=== PATIENT | female | born 1955 | race Caucasian/White ===

== ENCOUNTER 2017-08-03 16:02 | Outpatient (CLI) | payer OTHER | END 2017-08-03 16:03 | disposition home or self-care (01) | LOC: BICMAMMO 16:02 | PROVIDERS: ATTEND Family Medicine | DX: Z12.31 Encounter for screening mammogram for malignant neoplasm of breast (principal); R92.1 Mammographic calcification found on diagnostic imaging of breast; Z80.3 Family history of malignant neoplasm of breast | CPT/HCPCS: 77063; 77067 ==

== ENCOUNTER 2018-06-28 10:00 | Inpatient (IN) | payer OTHER ==
[2018-07-12 13:27] VITALS: BMI 32.9
[2018-07-17] MEDS ORDERED: Midazolam HCl 2 mg/2 ml Vial ONE (07:22)
[2018-07-17] MEDS ORDERED: Fentanyl 100 MCG/2 ML VIAL ONE ×2 (07:22→12:27)
[2018-07-17] MEDS ORDERED: Dexamethasone 4 mg/ml Vial ONE (07:26)
[2018-07-17] MEDS ORDERED: cefOXitin Sodium/Dextrose,Iso 2 GM in Premix Bag 1 BAG IVPB SCH (07:45)
[2018-07-17] MEDS ORDERED: Lidocaine 1% (PF) 30 ML VIAL ONE (08:18)
[2018-07-17] MEDS ORDERED: Ketorolac Tromethamine 30 MG/ML VIAL ONE (08:26)
[2018-07-17] MEDS ORDERED: Fentanyl 250 MCG/5 ML VIAL ONE (08:45)
[2018-07-17] MEDS ORDERED: Lidocaine 2% w/Epinephrine 1:200K 20 ML VIAL ONE ×2 (08:47→10:24)
[2018-07-17] MEDS ORDERED: ceFOXitin 1 GM VIAL ONE (10:24)
[2018-07-17] MEDS ORDERED: Meperidine HCl/PF 25 MG/ML VIAL ONE (11:56)
[2018-07-17] MEDS ORDERED: Fentanyl 100 MCG/2 ML VIAL SLOW IVP PRN (12:05)
[2018-07-17] MEDS ORDERED: Meperidine HCl/PF 25 MG/ML VIAL SLOW IVP PRN (12:05)
[2018-07-17] MEDS ORDERED: Ondansetron PF 4 MG/2 ML Vial IVP PRN ×2 (12:06→13:28)
[2018-07-17] MEDS ORDERED: Promethazine HCl 25 MG/ML VIAL IM PRN (13:28)
[2018-07-17] MEDS ORDERED: hydrALAZINE 20 MG/ML VIAL SLOW IVP PRN (13:28)
[2018-07-17] MEDS ORDERED: Morphine 4 MG/ML VIAL SLOW IVP PRN (13:28)
[2018-07-17] MEDS ORDERED: Bupivacaine HCl 0.5%/Epinephrine 1:200,000/PF 30 ml Vial ONE (13:40)
[2018-07-17] MEDS ORDERED: Ondansetron PF 4 MG/2 ML Vial ONE (13:54)
[2018-07-17] MEDS ORDERED: Glycopyrrolate 0.2 MG/ML 5 ML SYRINGE ONE (13:54)
[2018-07-17] MEDS ORDERED: Rocuronium Bromide 10 MG/ML (10ML VIAL) ONE (13:54)
[2018-07-17] MEDS ORDERED: Lidocaine 1% PF 5 ML VIAL ONE (13:54)
[2018-07-17] MEDS ORDERED: Dexamethasone 20 MG/5 ML VIAL ONE (13:54)
[2018-07-17] MEDS ORDERED: PROPOFOL 200 MG/20 ML VIAL ONE (13:54)
[2018-07-17] MEDS: D5 1/2 NS w/20 mEq KCL 1,000 ML IV SCH ×2 (14:00→19:48)
[2018-07-17] MEDS: Acetaminophen 1,000 MG in Premix Bag 1 BAG IVPB SCH ×2 (15:17→19:45)
[2018-07-17] MEDS: Ketorolac Tromethamine 30 MG/ML VIAL IVP SCH ×2 (15:18→19:46)
--- NOTE | 2018-07-17 15:33 | OP ---
DATE OF PROCEDURE: 07/17/2018 PREOPERATIVE DIAGNOSIS: Transverse colon polyp. POSTOPERATIVE DIAGNOSES: Transverse colon polyp and distal transverse colon with splenic flexure. PROCEDURES PERFORMED: Laparoscopic hand-assisted segmental colon resection of the splenic flexure of the colon with primary anastomosis. ANESTHESIA: General endotracheal. INDICATIONS: The patient is a 62-year-old white female. 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 This was tattooed. She is taken to the operating room this time for laparoscopic colectomy. DESCRIPTION OF OPERATION: Informed consent was obtained, the patient was taken to the operating room, where general endotracheal anesthesia was obtained with the patient in supine position. She was placed into the split leg position and Holder catheter was placed. Abdomen was prepped with ChloraPrep and draped in sterile fashion. Local anesthetic was infiltrated and 5 mm infraumbilical incision was created through, which a Veress needle was passed in the peritoneal cavity. Pneumoperitoneum was established using carbon dioxide up to pressure 50 mmHg. A 5 mm trocar port was passed through this incision and a laparoscopic camera was passed through this port. Under direct vision, an additional 5 mm left lower quadrant port was placed. There were omental adhesions to the anterior abdominal wall. There was a mesh patch in the upper abdomen and there were fairly dense adhesions to this mesh patch. Adhesions were carefully taken down with the LigaSure device. There was no bowel involved in the adhesions. All adhesions to the anterior abdominal wall were carefully lysed and hemostasis was meticulously maintained. I was then able to reflect the omentum superiorly over the colon. On inspection of the transverse colon, I was able to identify the blue dye tattoo on the anterior aspect of the distal transverse colon adjacent to the splenic flexure. An extraction site was selected in the left upper quadrant. An 8 cm oblique incision was created and muscle-splitting was used to gain access in the abdominal cavity and Christopher wound retractor was placed. GelPort was placed and hand assisted dissection was continued. The left colon was mobilized along the white line of Toldt up to the level of the splenic flexure. The omentum was dissected off the distal transverse colon again using the LigaSure. I was able to identify the Jae limb of the small bowel that was retrocolic. It appeared to have been somewhat twisted; however, attempts to straighten this either the proximal or distal end resulted in further twisting, so I decided to leave it alone. After fully mobilizing the distal transverse colon and the proximal left colon, this was externalized through the wound retractor. I selected the segment of the proximal transverse colon in the mid left colon for division. I took down all the mesentery between these 2 sites using the LigaSure device. I dissected directly down onto the Jae limb of the small bowel as proceeded through the mesentery, but injury to this was carefully avoided. 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 Double stapled anastomosis created with the ZACHARIAH 75 stapler at the sites that had been previously selected. The bowel was passed off the field. The colon was opened and at the site of the tattoo, I was able to identify a sessile polyp that was firm and potentially concerning. Segregated instruments have been utilized during the time that the bowel was opened and when it was inspected. All instruments were passed off the field and gloves were changed to continue the operation. The anastomosis was buttressed with several interrupted sutures of 3-0 silk. The anastomosis was then dropped back down to the abdominal cavity. Laparoscopy was continued. The abdominal cavity was inspected and it was found to be hemostatic. There have been essentially no blood loss at any time during the surgery. The area was irrigated and all irrigant was aspirated. All ports and instruments were removed under direct vision. Pneumoperitoneum was carefully evacuated. All laparoscopic equipment was removed from the field. The abdomen was cleansed with saline. Gowns and gloves were changed. New towels were placed around the 3 incisions. The fascia of the larger incision was closed in 2 layers using running suture of #1 PDS. Wound was copiously irrigated with 1.5 L of saline. All irrigant was aspirated. The remainder of the wound was closed in layers with 3-0 and 4-0 Monocryl. Dermabond was placed externally. The two 5 mm port sites were closed with 4-0 Monocryl as well. There were no complications. The patient tolerated the procedure well and was taken to recovery room in stable condition. Job ID: [id number]
[2018-07-17] MEDS: Famotidine 20 MG TAB PO SCH (19:46)
[2018-07-17] MEDS: Enoxaparin Sodium 40 MG/0.4 ML SYRINGE SC SCH (19:46)
[2018-07-17] MEDS: Metoprolol Tartrate 25 MG TAB PO SCH (19:46)
[2018-07-17] MEDS: Famotidine/PF 20 mg/2ml Vial SLOW IVP SCH (19:47)
[2018-07-18] MEDS: Morphine 4 MG/ML VIAL SLOW IVP PRN ×2 (01:09→20:56)
[2018-07-18] MEDS: Ketorolac Tromethamine 30 MG/ML VIAL IVP SCH ×4 (03:17→20:56)
[2018-07-18] MEDS: Acetaminophen 1,000 MG in Premix Bag 1 BAG IVPB SCH ×2 (03:18→09:27)
[2018-07-18 06:34] LABS: #Lymphocytes 1.1 thou/uL (1.20-3.40); #Monocytes 0.5 thou/uL (0.11-0.59); %Basophils 0.1 % (0.0-1.0); %Eosinophils 0.1 % (0.0-10.0); %Lymphocytes 13.8 % (21.0-51.0); %Monocytes 7.1 % (0.0-10.0); %Neutrophils 78.9 % (42.0-75.0); Hemoglobin 11.4 g/dL (12.0-16.0); Mean Corpuscular HGB CONC 33.3 g/dL (32.0-36.0); Mean Corpuscular Hemoglobin 33.5 pg (27.0-31.0); Platelet Count 187 thou/uL (130-400); RBC Distribution Width 11.5 % (11.5-14.5); Red Blood Cell (RBC) Count 3.41 mill/uL (4.20-5.40); White Blood Cell (WBC) Count 7.6 thou/uL (4.8-10.8)
[2018-07-18 06:50] LABS: Anion Gap 11 mmol/L (10-20); BUN (Urea Nitrogen) 11 mg/dL (9.8-20.1); Calc. Creatinine Clearance 109 mL/min (70-130); Calcium 8.7 mg/dL (7.8-10.44); Carbon Dioxide 23 mmol/L (23-31); Chloride 101 mmol/L (98-107); Estimated GFR-MDRD 75; Glucose 145 mg/dL (80-115); Potassium 4.6 mmol/L (3.5-5.1); Sodium 130 mmol/L (136-145)
[2018-07-18] MEDS: Famotidine/PF 20 mg/2ml Vial SLOW IVP SCH (09:12)
[2018-07-18] MEDS: Famotidine 20 MG TAB PO SCH ×2 (09:26→20:57)
[2018-07-18] MEDS: D5 1/2 NS w/20 mEq KCL 1,000 ML IV SCH ×3 (09:26→17:52)
[2018-07-18] MEDS: Metoprolol Tartrate 25 MG TAB PO SCH ×2 (09:26→20:57)
[2018-07-18] MEDS ORDERED: HYDROcodone/Acetaminophen 7.5/325 mg Tablet PO PRN ×2 (09:33)
[2018-07-18] MEDS: Enoxaparin Sodium 40 MG/0.4 ML SYRINGE SC SCH (20:55)
[2018-07-19] MEDS: D5 1/2 NS w/20 mEq KCL 1,000 ML IV SCH (00:26)
[2018-07-19] MEDS: Ketorolac Tromethamine 30 MG/ML VIAL IVP SCH ×3 (03:21→14:08)
[2018-07-19] MEDS: Metoprolol Tartrate 25 MG TAB PO SCH (09:25)
[2018-07-19] MEDS: Famotidine 20 MG TAB PO SCH (09:25)
[2018-07-19 11:50] VITALS: BP 120/72; TEMP 97.9
--- NOTE | 2018-07-20 13:07 | DIS ---
DATE OF ADMISSION: 07/17/2018 DATE OF DISCHARGE: 07/19/2018 ADMISSION DIAGNOSIS: Colonoscopically unresectable transverse colon polyp. DISCHARGE DIAGNOSES: Colonoscopically unresectable transverse colon polyp and polyp being in the distal transverse colon at the splenic flexure. OPERATION/PROCEDURES PERFORMED: Laparoscopic hand-assisted resection of the splenic flexure of the colon. ADMISSION HISTORY: The patient is a 62-year-old white female, who had undergone colonoscopy revealing a concerning polyp in the transverse colon. This revealed high-grade dysplasia and was felt to be colonoscopically unresectable. She was taken to the operating at this time for surgical resection of this area. Has been tattooed. HOSPITAL COURSE: The patient underwent surgery on the date of admission. Her surgery was uneventful and the tattooed area was quickly identified and uneventfully resected with an appropriate mesenteric dissection. She had an uneventful postoperative course. She was placed on clear liquids on the day of her surgery, which she tolerated and this was advanced. On postoperative day number 2, she was tolerating full liquids and had several bowel movements. Her pain was well controlled. She was hemodynamically stable at all times. She was discharged home on July 19 and given instructions for advancing her diet further. She will follow up with myself in 10 to 14 days. She was given a prescription for tramadol to use as necessary. Job ID: [id number]
== END 2018-07-19 15:00 | disposition home or self-care (01) | DRG 330 ==
LOC: EDSTATUS 07-10 10:00 → SURG A 07-17 06:47 → SURG B 07-17 13:21
PROVIDERS: ADMIT Specialist; ATTEND Specialist
PROC: 0DBL4ZZ Excision of Transverse Colon, Percutaneous Endoscopic Approach (ICD-10-PCS; principal; 2018-07-17)
DX: D12.3 Benign neoplasm of transverse colon (principal); D68.9 Coagulation defect, unspecified; Z98.84 Bariatric surgery status; D53.9 Nutritional anemia, unspecified; Z88.5 Allergy status to narcotic agent
CPT/HCPCS: 36415; 36416; 80048; 85025; 88309; J0131; J0670; J0694; J1100; J1650; J1885; J2001; J2175; J2250; J2270; J2405; J2704; J3010

== ENCOUNTER 2018-07-12 13:00 | Outpatient (CLI) | payer OTHER ==
[2018-07-12 15:22] LABS: #Basophils 0.1 thou/uL (0.0-0.2); #Eosinphils 0.1 thou/uL (0.0-0.7); #Lymphocytes 1.4 thou/uL (1.20-3.40); #Monocytes 0.6 thou/uL (0.11-0.59); %Basophils 1.3 % (0.0-1.0); %Eosinophils 3.3 % (0.0-10.0); %Lymphocytes 32.7 % (21.0-51.0); %Monocytes 14.5 % (0.0-10.0); %Neutrophils 48.2 % (42.0-75.0); Hemoglobin 13.4 g/dL (12.0-16.0); Mean Corpuscular HGB CONC 32.5 g/dL (32.0-36.0); Mean Platelet Volume 9.3 fL (7.4-10.4); Platelet Count 180 thou/uL (130-400); RBC Distribution Width 11.7 % (11.5-14.5); Red Blood Cell (RBC) Count 4.05 mill/uL (4.20-5.40); White Blood Cell (WBC) Count 4.2 thou/uL (4.8-10.8)
[2018-07-12 15:41] LABS: Hemoglobin A1c 5.5 % (4.0-6.0)
[2018-07-12 15:43] LABS: Anion Gap 14 mmol/L (10-20); BUN (Urea Nitrogen) 10 mg/dL (9.8-20.1); Calc. Creatinine Clearance 0 mL/min (70-130); Calcium 9.3 mg/dL (7.8-10.44); Carbon Dioxide 27 mmol/L (23-31); Chloride 103 mmol/L (98-107); Estimated GFR-MDRD 68; Glucose 81 mg/dL (80-115); Potassium 4.5 mmol/L (3.5-5.1); Sodium 139 mmol/L (136-145)
== END 2018-07-12 13:01 | disposition home or self-care (01) ==
LOC: LABBT 13:00
PROVIDERS: ATTEND Specialist
DX: Z01.818 Encounter for other preprocedural examination (principal); D12.3 Benign neoplasm of transverse colon
CPT/HCPCS: 80048; 83036; 85025; 93005; 93010